=== PATIENT | female | born 1960 | race African-American/Black ===

== ENCOUNTER 2021-07-10 13:00 | Emergency (ER) | payer OTHER ==
[2021-07-10 13:12] VITALS: BP 143/81; PULSE 87; TEMP 98.4; BMI 34.8
[2021-07-10] MEDS ORDERED: IBUPROFEN 400 MG TABLET (FP) PO ONE (14:11)
[2021-07-10] MEDS ORDERED: oxyCODONE HCL 5 MG TABLET PO ONE (14:45)
[2021-07-10] MEDS ORDERED: oxyCODONE HCL 5 MG TABLET ONE (15:04)
[2021-07-10 15:09] LABS: BASO % 0.4 % (0-2.0); EOS % 0.6 % (0-4.5); HEMATOCRIT 36.5 % (32.4-45.2); LYMPH % 22.4 % (8-40); MCH 26.2 pg (25.7-33.7); MCHC 32.7 g/dl (32.0-36.0); MEAN CELL VOLUME 79.9 fl (80-96); MEAN PLT VOLUME 7.2 fl (7.5-11.1); MONO % 5.2 % (3.8-10.2); NEUT % 71.4 % (42.8-82.8); PLATELET COUNT 337 10^3/uL (134-434); RBC 4.57 M/mm3 (3.60-5.2); RDW 18.1 % (11.6-15.6)
[2021-07-10 15:22] LABS: ALBUMIN 3.8 g/dl (3.4-5.0); BLOOD UREA NITROGEN 14.5 mg/dL (7-18); CALCIUM 9.3 mg/dL (8.5-10.1)
[2021-07-10 15:25] LABS: CREATININE 0.6 mg/dL (0.55-1.3)
[2021-07-10 15:27] LABS: BILIRUBIN,TOTAL 0.4 mg/dL (0.2-1); TOT PROT 7.6 g/dl (6.4-8.2)
== END 2021-07-10 18:08 | disposition home or self-care (01) ==
LOC: JER 13:00
DX: L03.115 Cellulitis of right lower limb (principal)
CPT/HCPCS: 80053; 85025; 93005; 93010; 93971-TC; 99285-25